=== PATIENT | female | born 1965 | race Caucasian/White ===

== ENCOUNTER → 2017-05-15 | Outpatient (CLI) | payer MEDICARE, OTHER ==
[2015-03-27 08:45] VITALS: BP 120/70
[~2017-05-15] MED LIST: mirena
--- NOTE | 2017-05-15 21:32 | KCIC ---
Bilateral digital screening mammograms: Reason for examination: Routine screening. Comparison is made to previous studies dated 12/04/2012 and 10/28/2008. The skin and nipples show no abnormalities. No abnormal axillary lymph nodes are seen. The breast parenchyma is heterogeneously dense. (Breast density: Category C.) There is a nodular density in the subareolar position of the left breast corresponding to cysts seen on previous ultrasound examination. There are no new dominant masses, suspicious calcifications or architectural distortion. Impression: No evidence of malignancy. Recommend routine screening. Your patient's mammogram demonstrates that she has dense breast tissue (breast density category C or D), which could hide abnormalities, and if she has other risk factors for breast cancer that have been identified, she might benefit from supplemental screening tests that may be suggested by you as her ordering physician. Dense breast tissue, in and of itself, is a relatively common condition. Therefore, this information is not provided to cause undue concern, but rather to raise your awareness and to promote discussion with your patient regarding the presence of other risk factors, in addition to dense breast tissue. Your patient's mammography results will be sent to her. BI-RAD Category 2: Benign. "Our facility is accredited by the [employer] Mammography Program." This patient's information has been entered into a reminder system for the patient to be notified with the results of her examination and a target date for the next mammogram. Electronically signed by: Norma Islas MD (05/15/2017 9:28 PM) [id number]
== END | disposition home or self-care (01) ==
LOC: KCIC MAMMO 15:06
PROVIDERS: ATTEND Family Medicine
DX: Z12.31 Encounter for screening mammogram for malignant neoplasm of breast (principal)
CPT/HCPCS: G0202; 77067

== ENCOUNTER → 2021-06-23 | Outpatient (CLI) | payer BC, MEDICARE, OTHER ==
[2015-03-27 08:45] VITALS: BP 120/70
--- NOTE | 2021-06-23 13:50 | KCIC ---
EXAMINATION: CT LEFT ANKLE WITHOUT IV CONTRAST CLINICAL HISTORY: Left ankle pain post injury 2 months ago. Patient rolled ankle and then fell. Swell ing, pain posterior aspect. TECHNIQUE: Noncontrast serial axial images obtained through the left ankle with sagittal and coronal reconstructions. CT Dose Reduction Employed: One or more of the following individualized dose reduction techniques wer e utilized for this examination: 1. Automated exposure control 2. Adjustment of the mA and/or kV ac cording to patient size 3. Use of iterative reconstruction technique. COMPARISON: None FINDINGS: No evidence of acute fracture. Tiny osseous density along the anterior talofibular joint, nonspecific but could be related to remote trauma. Joint spaces and alignment maintained. No joint effusion. Mild subcutaneous edema along the lateral ankle. Muscles and tendons unremarkable on limited evaluation. IMPRESSION: No evidence of acute osseous abnormality involving the left ankle. Electronically signed by: Parish Fallon DO (06/23/2021 1:48 PM) [id number]
== END ==
LOC: KCIC CT 12:20
PROVIDERS: ATTEND Family Medicine
DX: R60.0 Localized edema (principal); M25.572 Pain in left ankle and joints of left foot; M25.371 Other instability, right ankle
CPT/HCPCS: 73700

== ENCOUNTER → 2021-07-09 | Outpatient (CLI) | payer BC ==
[2015-03-27 08:45] VITALS: BP 120/70
--- NOTE | 2021-07-09 15:16 | KCIC ---
Bilateral digital screening mammograms with 3-D tomosynthesis: Reason for examination: Routine screening. Comparison is made to previous studies dated back to 10/28/2008. Bilateral mammograms in CC and oblique projections were obtained with 2-D imaging and 3-D tomosynthes is imaging on a Siemens Inspiration unit and reviewed on the workstation. Interpretation was made wit h the benefit of CAD. The skin and nipples show no abnormalities. No abnormal axillary lymph nodes are seen. Bilateral retr opectoral breast implants are now in place. The breast parenchyma is heterogeneously dense. (Breast d ensity: Category C.) There are circumscribed nodules present in the subareolar position of the right breast 1.5 cm deep to the nipple measuring 7 mm in size, in the right breast 2 cm posterior superior to the nipple at the 10:00 position measuring 3.5 mm in size, in the left breast at the 3:00 position 1.6 cm from the nipple measuring 1.2 cm in size and in the left breast posterior superior to the nip ple at the 2:00 position 3.4 cm from the nipple measuring 6.7 mm in size. These likely represent cyst s in this patient with history of cysts. There also appear to be small nodules probably representing intramammary lymph nodes at the 3:00 C position of the left breast and 10:00 C position of the right breast. Recommend further evaluation with ultrasound. No suspicious calcifications are seen. Impression: Small nodules bilaterally consistent with probable cysts and intramammary lymph nodes. Recommend furt her evaluation with ultrasound. Your patient's mammogram demonstrates that she has dense breast tissue (breast density category C or D), which could hide abnormalities, and if she has other risk factors for breast cancer that have bee n identified, she might benefit from supplemental screening tests that may be suggested by you as her ordering physician. Dense breast tissue, in and of itself, is a relatively common condition. Therefo re, this information is not provided to cause undue concern, but rather to raise your awareness and t o promote discussion with your patient regarding the presence of other risk factors, in addition to d ense breast tissue. Your patient's mammography results will be sent to her. BI-RAD Category 0: Incomplete. Needs additional imaging evaluation. "Our facility is accredited by the [employer] Mammography Program." This patient's information has been entered into a reminder system for the patient to be notified wit h the results of her examination and a target date for the next mammogram. Electronically signed by: Norma Islas MD (07/09/2021 3:14 PM) [id number]
== END ==
LOC: KCIC MAMMO 13:15
PROVIDERS: ATTEND Family Medicine
DX: Z12.31 Encounter for screening mammogram for malignant neoplasm of breast (principal)
CPT/HCPCS: 77063; 77067

== ENCOUNTER → 2021-07-28 | Outpatient (CLI) | payer BC ==
[2015-03-27 08:45] VITALS: BP 120/70
--- NOTE | 2021-07-28 13:53 | KCIC ---
US BREAST BILAT Clinical Indication: Reason: CALLBACK, abnormal screening mammogram.: Comparison: Bilateral mammogram July 09, 2021 and May 15, 2017. Bilateral breast ultrasound, Ap ril 2012. TECHNIQUE: Real-time ultrasound imaging of the right and left breast is performed. Findings: Right: There is a 7 millimeter anechoic cyst in the retroareolar right breast. There is a 4 mm cyst at the 1 0:00 position 2 cm from the nipple. No abnormality is identified at the 10:00 C position. There are n o abnormal axillary lymph nodes. Left: There is a 10 mm cyst at the 2:00 position 3 cm from the nipple. At the 3:00 position 1 cm from the n ipple, there is a 1.7 x 0.9 x 1.4 cm hypoechoic mass. There are heterogeneous internal echoes. There is vascularity at the periphery but no definite internal vascularity. There are no definite posterior acoustic features but the lesion is near the implant limiting evaluation for posterior acoustic shad owing. A much larger simple cyst was seen in this location on the prior ultrasound. Although lesion m ay be a complicated cyst a solid mass cannot be excluded. No abnormality is identified at the 3:00 C position. There are no abnormal axillary lymph nodes. IMPRESSION: 1. There is a hypoechoic mass in the left breast 3:00 position 1 cm from the nipple. Recommend ultra sound guided biopsy. 2. BI-RADS Category 4, suspicious. Electronically signed by: Vicente Fernandez MD (07/28/2021 1:50 PM) [id number]
== END ==
LOC: KCIC US 12:48
PROVIDERS: ATTEND Family Medicine
DX: N63.23 Unspecified lump in the left breast, lower outer quadrant (principal); N60.02 Solitary cyst of left breast; N60.01 Solitary cyst of right breast
CPT/HCPCS: 76641

== ENCOUNTER → 2021-08-18 | Outpatient (CLI) | payer BC ==
[2015-03-27 08:45] VITALS: BP 120/70
--- NOTE | 2021-08-18 13:50 | RAD ---
EXAM: Sonographic guided left breast biopsy; left breast biopsy clip placement; left breast postbiops y mammogram. HISTORY: 56-year-old female presents for sonographic guided biopsy of a mass within the 3:00 position of the left breast demonstrated on a sonogram performed 07/28/2021. TECHNIQUE: The risks of the procedure were discussed with the patient and written and verbal consent was obtained. A timeout was performed. Sonographic imaging of the left breast was performed and the 1 .7 cm lesion of concern at the 3:00 position was identified. The skin overlying this location was julissa rilely prepped, draped and infiltrated with 1 percent lidocaine. Multiple core samples were obtained through the lesion of concern and a biopsy clip was advanced into the central aspect of the lesion. M anual compression was maintained until hemostasis was achieved. A sterile bandage was placed. A post biopsy mammogram demonstrates the biopsy clip in expected position. There is surrounding postbiopsy c hange. The patient tolerated the procedure without immediate complication. IMPRESSION: Successful sonographic guided biopsy of a 1.7 cm mass within the 3:00 position of the lef t breast and biopsy clip placement. An addendum to this report will be submitted when pathology resul ts are available. Electronically signed by: Pati Woodall MD (08/18/2021 1:48 PM) [id number]
--- NOTE | 2021-08-20 12:10 | PATHOLOGY ---
[facility] Accession Number: [id number] . 01 Material submitted: . breast - LEFT BREAST MASS 3 O'CLOCK 1CMFN 1.7CM. Modifiers: left . 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 - Proliferative fibrocystic changes with focal florid ductal epithelial hyperplasia, stromal fibrosis, duct ectasia, and apocrine metaplasia. (JPM:roney; 08/20/2021) MBR 08/20/2021 1013 Local . 02 Comment: There is no evidence of malignancy. (JPM:roney; 08/20/2021) . 02 Electronically signed: . Fernandez Engle MD, Pathologist NPI- [id number] . 01 Gross description: . The specimen is received in formalin, labeled "Johnna Flores, left breast 3:00 1 cm from nipple". Received are three needle cores of fibrofatty tissue measuring 1.3 x 0.6 x 0.2 cm in aggregate dimensions. The specimen is submitted entirely in cassettes A1 through A3. The cold ischemic time is 1 minute. Total formalin fixation time is 29 hours and 38 minutes. ([facility]; 08/19/2021) QAC/QAC 08/19/2021 0932 Local . 02 Pathologist provided ICD-10: N60.12, N60.32, N60.42, N60.82 . 02 CPT . 921455 Specimen Comment: A courtesy copy of this report has been sent to [phone] Specimen Comment: [id number], Specimen Comment: Report sent to , DR JAMES / DR MAGANA Performed at: 01 [facility] [address], [place] [id number] MD Curtis Vasquez MD Phone: [phone] Performed at: 02 [facility] [address] [place], [place] [id number] MD Fernandez Engle MD Phone: [phone]
== END | disposition home or self-care (01) ==
LOC: US 12:36
PROVIDERS: ATTEND Surgery
DX: N63.21 Unspecified lump in the left breast, upper outer quadrant (principal); R92.8 Other abnormal and inconclusive findings on diagnostic imaging of breast; N60.32 Fibrosclerosis of left breast; N60.42 Mammary duct ectasia of left breast; N60.82 Other benign mammary dysplasias of left breast; E11.9 Type 2 diabetes mellitus without complications; Z87.891 Personal history of nicotine dependence; Z79.899 Other long term (current) drug therapy; Z98.890 Other specified postprocedural states
CPT/HCPCS: 19083; 77065; A4648; C1819